=== PATIENT | female | born 1980 | race Caucasian/White ===

== ENCOUNTER 2024-10-20 07:54 | Day surgery (SDC) | payer OTHER, SELFPAY ==
--- OUTSIDE RECORDS SUMMARY | 2024-10-16 14:47 | XMS_ITS | Clinical Summary ---
Author Organization [facility] [address] [employer] [facility] lin Address [address] 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 Name Role Phone Pcp, No Primary Care Provider [phone] Social History Tobacco Use Types Packs/Day Years Used Date Smoking Tobacco: Never Assessed Comments Unknown Sex and Gender Information Value Date Recorded Sex Assigned at Female 08/18/2021 10:58 AM EDT Legal Sex Female 9:16 AM EST Gender Identity Female 08/18/2021 10:58 AM EDT Sexual Orientation Straight 08/18/2021 10 :58 AM EDT Plan of Treatment Health Maintenance Due Date Last Done Comments Depression: Screening Annual ly using PHQ-2/9 in Adults 18 yrs or above (or HM Modifier)([facility]) 02/17/1998 Hepatitis C Virus Infection in Adolescents and Adults: Screening (or Modifier) ([facility]) 02/17/1998 [facility] Screening Reminder: [place] yeager for all adults ([facility]) 02/17/1998 Tobacco Smoking Cessation: i n Adults excluding Women: Behavioral and Pharmacotherapy Interventions ([facility]) 02/17/1998 DTaP/Tdap/Td Vaccines ([facility]) (1 - Tdap) 02/17/1999 Cervical Cancer Screenin 1-65 yrs of age (or Modifier) 02/17/2001 Cervical Cancer Screening: P ap every 3 yrs pts age 21-65 02/17/2001 Cervical Cancer: Pap Screeni ng with Modifier timing ([facility]) 02/17/2001 Cervical Cancer: hrHPV alone or with cotesting Pap for Pts 30-65yrs screening every 5yrs ([facility]) 02/17/2001 COVID-19 Vaccine Screening: Initial Series and Booster Status ([facility]) (2023- season) 2024 Flu Vaccination: Yearly for ages 18mos through 64 years (or Modifier)([facility]) 12/08/2024 Zoster/Shingles Vaccine Seri es Screening: Adults aged 18+ yrs (or HM Modifiers)([facility]) (1 of 2) 02/17/2030 Pneumococcal Vaccination Scr eening: Pts 0-19 & 19-49 yrs of age ([facility]) Aged Out No longer eligible based on patient's age to complete this topic Medical Devices Not on file Care Teams Track Repair Supervisor Relationship Specialty Start Date End Date Pcp, No PCP - General Family Medicine 08/04/21
[2024-10-18 14:05] VITALS: BMI 39.4
--- NOTE | 2024-10-19 09:46 | HO.ANESPROP2 ---
HPI - Anesthesia Eval Consult details Narrative: 44yo F for Upper Endoscopy and Colonoscopy PMFSH Past Medical History Medical History Allergic rhinitis Migraines Hyperlipidemia HTN (hypertension) Surgical History Surgical History Hx of tubal ligation Hx of section Hx of appendectomy Social History Social History Patient Tobacco Use Status: Never used Tobacco Have you been hit, kicked, punched, or otherwise hurt by someone within the past year? If so, by whom?: No Are you DNR?: No Advance Directives: No Advance Directives Information Provided: Yes Patient : No Meds Allergies Allergy/AdvReac Type Severity Reaction Status Date / Time No Known Allergies Allergy Verified 10/18/24 14:02 Home Medications ?Medication ?Instructions ?Recorded ?Confirmed ?Last Taken ?Type amlodipine 5 mg tablet 5 mg PO DAILY 10/18/24 10/18/24 10/20/24 History cetirizine 10 mg tablet 10 mg PO DAILY 10/18/24 10/18/24 10/20/24 History escitalopram oxalate 5 mg tablet 5 mg PO DAILY 10/18/24 10/18/24 10/20/24 History (Lexapro) hydroxyzine HCl 25 mg tablet 25 mg PO BEDTIME PRN anxiety 10/18/24 10/18/24 Unknown History rosuvastatin 10 mg tablet 10 mg PO DAILY 10/18/24 10/18/24 10/20/24 History Exam Height,Weight and Vital Signs: Height 5 ft 6 in Weight 110.677 kg Assessment and Plan Assessment Anesthesia Assessment: Chart Reviewed
[2024-10-20 08:38] VITALS: BP 152/105; PULSE 75; RESP 20; TEMP 36.3; O2SAT 97; BMI 38.4
--- NOTE | 2024-10-20 08:52 | P.CONAN_ITS ---
[facility] Past Medical History Medical History Allergic rhinitis Migraines Hyperlipidemia HTN (hypertension) Functional capacity: independent ambulation Patient : No Family History Family history of problems with anesthesia: No Surgical History Surgical History Hx of tubal ligation Hx of section Hx of appendectomy History of Problems with Anesthesia: No Social History Social History Patient Tobacco Use Status: Never used Tobacco Have you been hit, kicked, punched, or otherwise hurt by someone within the past year? If so, by whom?: No Are you DNR?: No Advance Directives: No Advance Directives Information Provided: Yes Patient : No Meds Allergies Allergy/AdvReac Type Severity Reaction Status Date / Time No Known Allergies Allergy Verified 10/18/24 14:02 Active Medications: Current Medications Lactated Ringer's (Lr) 1,000 mls @ 100 mls/hr IVCONT .Q10H BERTIN Home Medications ?Medication ?Instructions ?Recorded ?Confirmed ?Last Taken ?Type amlodipine 5 mg tablet 5 mg PO DAILY 10/18/24 10/18/24 10/20/24 History cetirizine 10 mg tablet 10 mg PO DAILY 10/18/24 10/18/24 10/20/24 History escitalopram oxalate 5 mg tablet 5 mg PO DAILY 10/18/24 10/18/24 10/20/24 History (Lexapro) hydroxyzine HCl 25 mg tablet 25 mg PO BEDTIME PRN anxiety 10/18/24 10/18/24 Unknown History rosuvastatin 10 mg tablet 10 mg PO DAILY 10/18/24 10/18/24 10/20/24 History Exam Height,Weight and Vital Signs: Height 5 ft 6 in Weight 107.955 kg Last Vital Signs Temp 97.3 F 10/20/24 08:38 Pulse 75 10/20/24 08:38 Resp 20 10/20/24 08:38 BP 152/105 H 10/20/24 08:38 Pulse Ox 97 10/20/24 08:38 O2 Del Method Room Air 10/20/24 08:38 Airway Mallampati Class: III TM Dist: >3cm Neck ROM: Full Heart: RRR Lungs: CTA Assessment and Plan Assessment Anesthesia Assessment: Anesthesia Plan Discussed Final Anesthetic Review Family History of Problems with Anesthesia: No History of Problems with Anesthesia: No NPO: Yes ASA Class: II Final Preanesthetic Review: Meds/Allgs Chart Reviewed, Consent Obtained/Reviewed and Anes Risks/Benef Reviewed Patient Risk: Low Procedure Risk: Low Anesthetic Plan Anesthetic Plan: MAC: Disposition: Standard PACU
[2024-10-20] MEDS: Lactated Ringers 1,000 ML 100 ML IVCONT (08:56)
[2024-10-20 09:01] VITALS: BP 143/85
--- NOTE | 2024-10-20 10:08 | MHC.SHP ---
Pre-Procedural Eval Section A - 24 Hr Update-Section A only Date of Service: 10/20/24 The patient is an INPATIENT: No Changes since office visit: No Cold of Flu in the past 2 weeks, No New Medical Problems, No Changes in Medication and No Patient answered all questions The patient has been examined within 24 hours of the surgical procedure. The History & Physical has been completed within 30 days and I have reviewed it.: Yes Section B - Complete if H&P > 30 days Chief Complaint: Hemorrhage of anus and rectum,abdominal pain Allergies: Allergies Allergy/AdvReac Type Severity Reaction Status Date / Time No Known Allergies Allergy Verified 10/18/24 14:02 Plan I have reviewed the history and physical and performed a pertinent physical examination on my patient. No changes have occurred unless specified. Time Spent With Patient Time: Total time managing care of this patient today ____ minutes.
[2024-10-20 11:09] VITALS: BP 133/76; PULSE 82; RESP 16; TEMP 36.6; O2SAT 98
[2024-10-20 11:24] VITALS: BP 127/80; PULSE 78; RESP 17; TEMP 36.6; O2SAT 99
--- NOTE | 2024-10-20 11:45 | HO.POSTANES ---
Post Anesthesia Evaluation Post Anesthesia Evaluation Date of Service: 10/20/24 Vital Signs: Vital Signs Temp Pulse Resp BP Pulse Ox O2 Del Method 10/20/24 11:24 97.8 F 78 17 127/80 99 Room Air 10/20/24 11:09 97.8 F 82 16 133/76 98 Room Air 10/20/24 09:01 143/85 H 10/20/24 08:38 97.3 F 75 20 152/105 H 97 Room Air Anesthesia: Monitored Mental Status: Awake Pain Control: Satisfactory Nausea/Vomiting: None Hydration: Adequate Anesthesia-Related Issues: No Anes. Related Issues
--- NOTE | 2024-10-20 12:05 | OP_ITS ---
DATE OF SERVICE: 10/20/2024 SURGEON: Kurtis Mendiola MD INDICATIONS: Rectal bleeding and abdominal pain. PREOPERATIVE DIAGNOSIS: POSTOPERATIVE DIAGNOSIS: PROCEDURE PERFORMED: ESTIMATED BLOOD LOSS: COMPLICATIONS: ANESTHESIA: ASSISTANTS: SPECIMENS: PROCEDURES: 1. Upper endoscopy with biopsy. 2. Colonoscopy to the cecum with biopsy. MEDICATIONS: Monitored anesthesia care. DESCRIPTION OF PROCEDURE: History and physical was performed. The risks and benefits of the procedure were explained to the patient and informed consent was obtained. The patient was placed in the left lateral decubitus position. The Olympus video gastroscope was introduced into the esophagus, stomach, and duodenum. Examination was performed and the scope was removed. She was repositioned for colonoscopy. A digital rectal exam was performed and was found to be normal. The Olympus pediatric video colonoscope was introduced into the rectum and advanced to the cecum. The cecum was identified by transillumination, palpation, and identification of ileocecal valve. Examination was performed and the scope was removed. She tolerated both procedures well and was taken to Recovery in stable condition. FINDINGS: 1. Upper endoscopy: a. Esophagus: The esophagus was normal. Biopsies were obtained from the EG junction. b. Stomach: The stomach was normal. Biopsies were obtained from the antrum. c. Duodenum: The bulb and second portion were normal. Biopsies were obtained from the second portion. 1. Colonoscopy: The terminal ileum was not examined. The visualized colonic mucosa was normal. There was no evidence of colitis or Crohn disease. Sigmoid biopsies were obtained because of the patient's prior history of abdominal pain and to rule out microscopic colitis. Several polyps were identified and removed with biopsy forceps, all measured less than 5 mm. These were located in the cecum, in the right colon, and at 40 cm. Retroflexed examination did show some small internal hemorrhoids. IMPRESSION: 1. Normal upper endoscopy. 2. Colon polyps. RECOMMENDATIONS: Follow up the biopsy results. MD ANTONIO Fraga/NOHELIA / [id number]
== END 2024-10-20 12:00 | disposition home or self-care (01) ==
PROVIDERS: PCP Internal Medicine; Visit Provider Internal Medicine Gastroenterology
PROC: (CPT 45380; principal; 2024-10-20 10:10)
DX: K62.5 Hemorrhage of anus and rectum (principal); D12.0 Benign neoplasm of cecum; D12.2 Benign neoplasm of ascending colon; K63.5 Polyp of colon; K64.8 Other hemorrhoids; R10.9 Unspecified abdominal pain; K29.50 Unspecified chronic gastritis without bleeding; R12 Heartburn; I10 Essential (primary) hypertension; E78.5 Hyperlipidemia, unspecified; G43.909 Migraine, unspecified, not intractable, without status migrainosus; J30.9 Allergic rhinitis, unspecified; Z79.899 Other long term (current) drug therapy
CPT/HCPCS: 45380; 43239; 88305; 88313; 88342; J2003; J2704